=== PATIENT | female | born 1990 | race Caucasian/White ===

== ENCOUNTER 2018-09-12 14:29 | Emergency (ER) | payer OTHER ==
[~2018-09-12] VITALS: Ht 160 cm; Wt 49.4 kg
[2018-09-12] MEDS ORDERED: ASCORBIC ACID500 MG ORAL (14:38)
[2018-09-12] MEDS ORDERED: MULTI-DELYN237 ML GT (14:38)
[2018-09-12] MEDS ORDERED: ACETAMINOP160 MG/52 ORAL (14:38)
[2018-09-12] MEDS ORDERED: AMLODIPINE BESYL5 MG ORAL (14:38)
[2018-09-12] MEDS ORDERED: FAMOTIDINE20 MG ORAL (14:38)
[2018-09-12] MEDS ORDERED: MILK OF MA400 MG/51 ORAL (14:38)
[2018-09-12] MEDS ORDERED: LEVETIRACE100 MG/1 M GT (14:38)
[2018-09-12] MEDS ORDERED: GERI-KOT8.6 MG PO (14:38)
[2018-09-12] MEDS ORDERED: PYRIDOSTIGMINE60 MG ORAL (14:38)
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
[2018-09-12 14:58] VITALS: BP 109/82
[2018-09-12 16:00] VITALS: BP 117/84
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
[2018-09-12 16:25] LABS: BASOPHILS % (AUTO) 2.3 % (0.0-2.0); EOSINOPHILS % (AUTO) 0.3 % (0.0-3.0); HEMATOCRIT 40.4 % (37.0-47.0); HEMOGLOBIN 12.8 G/DL (12.0-16.0); LYMPHOCYTES % (AUTO) 23.9 % (20.0-45.0); MEAN CORPUSCULAR VOLUME 73 FL (80-99); MONOCYTES % (AUTO) 1.9 % (1.0-10.0); NEUTROPHILS % (AUTO) 71.6 % (45.0-75.0); PLATELET COUNT 261 K/UL (150-450); RED BLOOD COUNT 5.54 M/UL (4.20-5.40)
[2018-09-12 16:26] LABS: ANION GAP 10 mmol/L (5-15); BLOOD UREA NITROGEN 13 mg/dL (7-18); CALCIUM 9.5 MG/DL (8.5-10.1); CARBON DIOXIDE 24 MMOL/L (21-32); CHLORIDE 104 MMOL/L (98-107); CREATININE 0.4 MG/DL (0.55-1.30); POTASSIUM 4.7 MMOL/L (3.5-5.1); SODIUM 138 MMOL/L (136-145)
--- NOTE | 2018-09-12 16:49 | History and Physical ---
History of Present Illness General Date patient seen: Sep 12, 2018 Time patient seen: 16:00 Reason for Hospitalization: Malfunctioning Gastric Tube Present Illness HPI Ms. Colon is a 28 yo female with PMH Hx of epilepsy, myasthenia gravis, TBI, encephalopathy, seizure disorder, who presented from [facility] for having pulled out her G tube at 10:30 am today. GI consulted for GT removal by the ED. The G tube site is not patent and patient will need admission for G tube replacement tomorrow by GI. Patient is non-verbal at baseline and unable to answer questions. Vitals are stable. Medications reconciled Allergies: Coded Allergies: No Known Allergies (Unverified , 09/12/18) Medication History Scheduled Amlodipine Besylate* (Amlodipine Besylate*), 5 MG ORAL DAILY, (Reported) Ascorbic Acid* (Ascorbic Acid*), 500 MG ORAL DAILY, (Reported) Famotidine (Famotidine), 20 MG ORAL DAILY, (Reported) Levetiracetam* (Levetiracetam*), 500 MG GT BID, (Reported) Magnesium Hydroxide* (Milk Of Magnesia*), 30 ML ORAL DAILY, (Reported) Multivitamin Liquid* (Multi-Delyn*), 5 ML GT DAILY, (Reported) Pyridostigmine [place]* (Mestinon*), 60 MG ORAL THREE TIMES A DAY, (Reported) Scheduled PRN Acetaminophen* (Acetaminophen*), 640 MG ORAL Q4H PRN for Mild Pain/Temp > 100.5, (Reported) Miscellaneous Medications Sennosides (Zunilda-[place]), 8.6 MG PO, (Reported) Patient History Healthcare decision maker Resuscitation status Advanced Directive on File Past Medical/Surgical History Past Medical/Surgical History: (1) Myasthenia gravis (2) Anoxic brain damage (3) Encephalopathy (4) Hydrocephalus (5) Seizure disorder (6) History of tracheostomy (7) Traumatic brain injury Review of Systems ROS Narrative UTO 2/2 patient nonverbal at baseline Physical Exam General Appearance: WD/WN, no apparent distress, alert, other - UE contractures , awake and alert, non verbal Lines, tubes and drains: peripheral HEENT: other - patient does not allow for pupil examination and keeys eyes shut , head atraumatic, acne present Neck: non-tender, normal alignment, supple, other - old tracheostomy site Respiratory/Chest: chest wall non-tender, lungs clear, no respiratory distress , no accessory muscle use Cardiovascular/Chest: normal peripheral pulses, normal rate, regular rhythm, regularly irregular, no gallop/murmur Abdomen: normal bowel sounds, non tender, soft, no organomegaly, no mass, other - site of G tube is narrow, GI team unable to pass valiente, Extremities: other - atrophy in extremities BL UE and LE Skin Exam: normal pigmentation, warm/dry Neurologic: other - rigidity noted BL UE and LW, 3+ DTR in RLE, 2+ DTR LLE, negative babinski, no tremors, no fasciculations, exam limites due to patients medical condition Musculoskeletal: atrophy Last 24 Hour Vital Signs Date Time Temp Pulse Resp B/P (MAP) Pulse Ox O2 Delivery O2 Flow Rate FiO2 09/12/18 16:00 98.6 82 16 117/84 100 Room Air 09/12/18 14:58 97.1 81 16 109/82 100 Room Air 09/12/18 14:20 98.8 81 20 109/82 100 Room Air Laboratory Tests Test 09/12/18 15:40 White Blood Count 11.0 K/UL (4.8-10.8) H Red Blood Count 5.54 M/UL (4.20-5.40) H Hemoglobin 12.8 G/DL (12.0-16.0) Hematocrit 40.4 % (37.0-47.0) Mean Corpuscular Volume 73 FL (80-99) L Mean Corpuscular Hemoglobin 23.2 PG (27.0-31.0) L Mean Corpuscular Hemoglobin Concent 31.8 G/DL (32.0-36.0) L Red Cell Distribution Width 14.0 % (11.6-14.8) Platelet Count 261 K/UL (150-450) Mean Platelet Volume 7.8 FL (6.5-10.1) Neutrophils (%) (Auto) 71.6 % (45.0-75.0) Lymphocytes (%) (Auto) 23.9 % (20.0-45.0) Monocytes (%) (Auto) 1.9 % (1.0-10.0) Eosinophils (%) (Auto) 0.3 % (0.0-3.0) Basophils (%) (Auto) 2.3 % (0.0-2.0) H Sodium Level 138 MMOL/L (136-145) Potassium Level 4.7 MMOL/L (3.5-5.1) Chloride Level 104 MMOL/L (98-107) Carbon Dioxide Level 24 MMOL/L (21-32) Anion Gap 10 mmol/L (5-15) Blood Urea Nitrogen 13 mg/dL (7-18) Creatinine 0.4 MG/DL (0.55-1.30) L Estimat Glomerular Filtration Rate > 60 mL/min (>60) Glucose Level 79 MG/DL (74-106) Calcium Level 9.5 MG/DL (8.5-10.1) Height (Feet): 5 Height (Inches): 3.00 Weight (Pounds): 109 Medications Current Medications Medications (Trade) Dose Ordered Sig/Jason Route PRN Reason Start Time Stop Time Status Last Admin Dose Admin Acetaminophen (Tylenol) 650 mg Q4H PRN ORAL Mild Pain (Pain Scale 1-3) 09/12/18 16:30 10/12/18 16:29 UNV Acetaminophen (Tylenol) 650 mg Q4H PRN ORAL fever 09/12/18 16:30 10/12/18 16:29 UNV Dextrose (Dextrose 50%) 25 ml Q30M PRN IV Hypoglycemia 09/12/18 16:30 10/12/18 16:29 UNV Dextrose (Dextrose 50%) 50 ml Q30M PRN IV Hypoglycemia 09/12/18 16:30 10/12/18 16:29 UNV Dextrose/Sodium Chloride 1,000 ml @ 70 mls/hr [id number] IV 09/12/18 17:25 10/12/18 17:24 UNV Levetiracetam 100 ml @ 400 mls/hr Q12HR ONCE IVPB 09/12/18 21:00 09/12/18 21:14 UNV Pyridostigmine [place] (Mestinon) 60 mg THREE TIMES A DAY GT 09/12/18 18:00 10/12/18 17:59 UNV Assessment/Plan Problem List: (1) Gastrojejunostomy tube dislodgement ICD Codes: Z43.4 - Encounter for attention to other artificial openings of digestive tract SNOMED: 226058440 (2) Anoxic brain damage ICD Codes: G93.1 - Anoxic brain damage, not elsewhere classified SNOMED: 405586573 (3) Myasthenia gravis ICD Codes: G70.00 - Myasthenia gravis without (acute) exacerbation SNOMED: 05954211 (4) Seizure disorder ICD Codes: G40.909 - Epilepsy, unspecified, not intractable, without status epilepticus SNOMED: 780455909 Assessment/Plan G tube dislodgement - appreciate GI consult Dr. Llanos and NICOLASA Calderón - patient NPO after midnight - hold heparin Seizure history - seizure precaution - continue keppra Myasthenia gravis - continue mestinon TBI - supportive care - cont home meds Patient admitted as observation for replacement of G tube by GI tomorrow. I have spent 70 minutes regarding patient care and 30 minutes regarding coordination of care. Roberta Eugene DO Sep 12, 2018 16:49
[2018-09-12 17:47] VITALS: BP 115/78
[2018-09-12 18:00] LABS: PHOSPHORUS 4.1 MG/DL (2.5-4.9)
[2018-09-12] MEDS ORDERED: Pyridostigmine 60mg tab GT SCH (18:00)
[2018-09-12] MEDS ORDERED: Acetaminophen 650mg/20.3ml GT PRN ×2 (18:30)
[2018-09-12] MEDS ORDERED: D5 1/2NS 1,000 ML IV SCH (18:30)
[2018-09-12 18:55] VITALS: BP 121/85
[2018-09-12] MEDS ORDERED: levETIRAcetam 500mg/NS100ml 100 ML IVPB ONE (19:39)
[2018-09-12] MEDS ORDERED: levETIRAcetam 500mg/NS100ml 100 ML IVPB SCH (21:00)
[2018-09-12 21:12] VITALS: BP 119/86
[2018-09-12 21:39] VITALS: BP 119/63
== END 2018-09-12 21:42 | disposition short-term general hospital (02) ==
LOC: EDBD 14:29 → EMR 15:17
DX: K94.23 Gastrostomy malfunction (principal); Y83.3 Surgical operation with formation of external stoma as the cause of abnormal reaction of the patient, or of later complication, without mention of misadventure at the time of the procedure; Y92.9 Unspecified place or not applicable; I10 Essential (primary) hypertension; G70.00 Myasthenia gravis without (acute) exacerbation; G40.909 Epilepsy, unspecified, not intractable, without status epilepticus; Z87.820 Personal history of traumatic brain injury; Z79.899 Other long term (current) drug therapy
CPT/HCPCS: 36415; 80048; 83735; 84100; 85025; 85610; 85730; 87081; 96365; 96366; 96368; 99284; J1953